=== PATIENT | female | born 1975 | race Caucasian/White ===

== ENCOUNTER → 2018-12-09 | Outpatient (CLI) | payer OTHER ==
[~2018-12-09] MED LIST: ALBU90OI INH; CARI350; CEPH500 PO; CETI10 PO; CYCL10 PO; DIAZ5 PO; DIPH50 PO; DOXY100 PO; DULO30; HYDACE5 PO; HYDGUAL120 PO; IBUP800; IBUP800 PO; NAPR500 PO; OXYACE5T PO; PENVK500 PO; SULTRIDS PO
== END | disposition home or self-care (01) ==
LOC: LAB 13:15 → LAB SHORT 13:15
PROVIDERS: Nurse Practitioner Family
DX: Z01.419 Encounter for gynecological examination (general) (routine) without abnormal findings (principal)
CPT/HCPCS: G0123

== ENCOUNTER 2019-02-16 11:33 | Day surgery (SDC) | payer OTHER ==
[~2019-02-16] VITALS: Ht 170.2 cm; Wt 82.3 kg
--- NOTE | 2019-02-16 13:27 | NUR ---
02/16/19 1326 Sunil Lewis PREP DONE BY GARY GARCIA.
== END 2019-02-16 14:22 | disposition home or self-care (01) ==
LOC: ORSCSDS 11:33 → ORD 13:00 → ORSCSDS 13:00
PROVIDERS: Surgery
PROC: 0JBM0ZZ Excision of Left Upper Leg Subcutaneous Tissue and Fascia, Open Approach (ICD-10-PCS; principal; 2019-02-16 13:00)
DX: D17.24 Benign lipomatous neoplasm of skin and subcutaneous tissue of left leg (principal)
CPT/HCPCS: 88304; J2250; J3010; J7120

== ENCOUNTER 2022-10-18 13:43 | Emergency (ER) | payer OTHER ==
[~2022-10-18] VITALS: Ht 170.2 cm; Wt 81.7 kg
== END 2022-10-18 17:55 | disposition home or self-care (01) ==
LOC: ER 13:43
DX: T18.9XXA Foreign body of alimentary tract, part unspecified, initial encounter (principal); X58.XXXA Exposure to other specified factors, initial encounter
CPT/HCPCS: 71046; J1610